=== PATIENT | female | born 1960 | race Caucasian/White ===

== ENCOUNTER 2023-11-15 10:43 | Outpatient (CLI) | payer OTHER | END 2023-11-15 10:44 | disposition home or self-care (01) | LOC: CSHMAMMO 10:43 | PROVIDERS: ATTEND Nurse Practitioner Family | DX: M81.0 Age-related osteoporosis without current pathological fracture (principal); M85.851 Other specified disorders of bone density and structure, right thigh; M85.852 Other specified disorders of bone density and structure, left thigh | CPT/HCPCS: 77080 ==

== ENCOUNTER 2023-11-16 10:35 | Outpatient (CLI) | payer OTHER | END 2023-11-16 10:36 | disposition home or self-care (01) | LOC: CSHMAMMO 10:35 | PROVIDERS: ATTEND Nurse Practitioner Family | DX: Z12.31 Encounter for screening mammogram for malignant neoplasm of breast (principal); Z80.3 Family history of malignant neoplasm of breast; Z98.890 Other specified postprocedural states | CPT/HCPCS: 77063; 77067 ==

== ENCOUNTER 2024-02-13 10:12 | Outpatient (CLI) | payer OTHER | END 2024-02-13 10:13 | disposition home or self-care (01) | LOC: CSHCT 10:12 | PROVIDERS: ATTEND Nurse Practitioner Family | DX: Z12.2 Encounter for screening for malignant neoplasm of respiratory organs (principal); Z87.891 Personal history of nicotine dependence; R06.02 Shortness of breath; J43.2 Centrilobular emphysema; J43.8 Other emphysema | CPT/HCPCS: 71046; 71271 ==

== ENCOUNTER 2024-06-03 08:16 | Outpatient (CLI) | payer OTHER | END 2024-06-03 08:17 | disposition home or self-care (01) | LOC: CSHSLEEP 08:16 | DX: G47.33 Obstructive sleep apnea (adult) (pediatric) (principal); R06.83 Snoring | CPT/HCPCS: 95800 ==